=== PATIENT | female | born 1945 | race Caucasian/White ===

== ENCOUNTER → 2020-09-16 08:29 | Outpatient (CLI) | payer MEDICARE, SELFPAY ==
--- NOTE | ~2020-09-16 | US_ITS ---
EXAMINATION: US abdomen complete DATE: 09/16/2020 09:36 INDICATION: Generalized abdominal pain. TECHNIQUE: Multiple grayscale and Doppler ultrasound images of the abdomen were obtained. COMPARISON: None FINDINGS: The visualized portions of the head, body, and tail of pancreas are normal. Abdominal aorta is normal in caliber. Inferior vena cava is normal. There is a 6.3 cm cyst in the liver. There is no rmal flow in main portal vein. The gallbladder is normal in size and contains sludge. No gallbladder wall thickening or sonographic Rivera signs. The common duct is dilated to 9 mm. The spleen is normal in size. The kidneys are normal in size. There are cysts in the kidneys measuring up to 2.1 cm on th e right. IMPRESSION: 1. Gallbladder sludge. No evidence of acute cholecystitis. Reviewed, dictated and finalized at location A.
== END ==
PROVIDERS: PCP Internal Medicine; Visit Provider Internal Medicine
DX: R00.2 Palpitations (principal); I73.00 Raynaud's syndrome without gangrene; K76.89 Other specified diseases of liver; M81.8 Other osteoporosis without current pathological fracture
CPT/HCPCS: 76700